=== PATIENT | female | born 1955 | race Two or more races ===

== ENCOUNTER 2023-02-25 09:07 | Inpatient (IN) | payer OTHER ==
[~2023-02-25] VITALS: Ht 172.7 cm; Wt 95.7 kg
[2023-02-28] MEDS ORDERED: COLACE100 MG PO (12:14)
[2023-02-28] MEDS ORDERED: ACETAMINOPHEN-1 EAC2 PO (12:16)
[2023-02-28] MEDS ORDERED: MEDROLPACK PO (12:16)
[2023-02-28] MEDS ORDERED: BENADRYL25 MG PO (12:16)
== END 2023-03-01 11:40 | DRG 473 ==
LOC: O/R 02-28 07:03 → PED 02-28 07:03 → EDBD 02-28 10:30 → SURG 02-28 10:30 → PED 02-28 15:21
PROVIDERS: ADMIT Orthopaedic Surgery Orthopaedic Surgery of the Spine; ATTEND Orthopaedic Surgery Orthopaedic Surgery of the Spine
PROC: 0RT30ZZ Resection of Cervical Vertebral Disc, Open Approach (ICD-10-PCS; 2023-02-28)
PROC: 0PB30ZZ Excision of Cervical Vertebra, Open Approach (ICD-10-PCS; 2023-02-28)
PROC: 07DS0ZZ Extraction of Vertebral Bone Marrow, Open Approach (ICD-10-PCS; 2023-02-28)
PROC: 0RG10A0 Fusion of Cervical Vertebral Joint with Interbody Fusion Device, Anterior Approach, Anterior Column, Open Approach (ICD-10-PCS; principal; 2023-02-28 13:30)
DX: M50.021 Cervical disc disorder at C4-C5 level with myelopathy (principal); M48.02 Spinal stenosis, cervical region; I11.9 Hypertensive heart disease without heart failure; I49.8 Other specified cardiac arrhythmias; E03.9 Hypothyroidism, unspecified; E78.5 Hyperlipidemia, unspecified; Z88.2 Allergy status to sulfonamides

== ENCOUNTER 2023-02-28 06:50 | Outpatient (CLI) | payer OTHER ==
[2023-02-28] MEDS ORDERED: MEDROLPACK PO (12:16)
[2023-02-28] MEDS ORDERED: ACETAMINOPHEN-1 EAC2 PO (12:16)
[2023-02-28] MEDS ORDERED: BENADRYL25 MG PO (12:16)
== END 2023-02-28 06:54 | disposition home or self-care (01) ==
LOC: LAB 06:50
PROVIDERS: ATTEND Orthopaedic Surgery Orthopaedic Surgery of the Spine
DX: Z03.818 Encounter for observation for suspected exposure to other biological agents ruled out (principal); Z20.822 Contact with and (suspected) exposure to COVID-19; U07.1 COVID-19